=== PATIENT | male | born 1990 ===

== ENCOUNTER 2016-12-02 14:56 | Emergency (ER) | payer MEDICAID, OTHER ==
[2016-12-02 15:01] VITALS: BP 125/78; PULSE 95; RESP 18; TEMP 98.4; O2SAT 99
[2016-12-02] MEDS ORDERED: Lidocaine 2% w Epi 1:100,000 Inj IJ ONE (15:49)
[2016-12-02] MEDS ORDERED: Tmp-Smz 800 mg-160 mg DS Tab PO STA (15:53)
--- NOTE | 2016-12-02 15:54 | C.PDOC ---
History Of Present Illness 26 year old male presents to the ED for evaluation of pain to his buttock area which began around 1 week ago. Patient notes swelling to the area and states he has not taken any medicine for his symptoms. Patient denies fever, chills, recent trauma/injury to the affected area, or previous history of similar symptoms. Time Seen by Provider: 12/02/16 15:05 Chief Complaint (Nursing): Abnormal Skin Integrity History Per: Patient History/Exam Limitations: no limitations Onset/Duration Of Symptoms: Days (1 week ) Current Symptoms Are (Timing): Still Present Location Of Injury: Posterior: Buttock Quality Of Symptoms: Painful, Swollen Additional History Per: Patient Past Medical History Reviewed: Historical Data, Nursing Documentation, Vital Signs Vital Signs: Last Vital Signs Temp 98.4 F 12/02/16 14:58 Pulse 95 H 12/02/16 14:58 Resp 18 12/02/16 14:58 BP 125/78 12/02/16 14:58 Pulse Ox 99 12/02/16 17:42 - Medical History PMH: No Chronic Diseases Surgical History: No Surg Hx Family History: States: Unknown Family Hx - Social History Hx Alcohol Use: No Hx Substance Use: Yes - Immunization History Hx Tetanus Toxoid Vaccination: No Hx Influenza Vaccination: No Hx Pneumococcal Vaccination: No Review Of Systems Constitutional: Negative for: Fever, Chills Musculoskeletal: Positive for: Other (buttock pain with swelling ) Physical Exam - Physical Exam Appears: Non-toxic, No Acute Distress Skin: Warm, Dry, Other (2 cm mild swelling noted to left gluteal cleft. mild erythema, no fluctuance) Head: Atraumatic, Normacephalic Eye(s): bilateral: Normal Inspection, EOMI Nose: Normal Oral Mucosa: Moist Neck: Supple Chest: Symmetrical, No Deformity Cardiovascular: Rhythm Regular Respiratory: Normal Breath Sounds Rectal: Tenderness (no perirectal tenderness, swelling or ertyhema) Back: No CVA Tenderness, No Vertebral Tenderness Extremity: Normal ROM, Capillary Refill (less than 2 seconds ) Neurological/Psych: Oriented x3, Normal Speech, Normal Cognition Gait: Steady ED Course And Treatment O2 Sat by Pulse Oximetry: 99 (on RA) Pulse Ox Interpretation: Normal Progress Note: Patient received Toradol IM and Bactrim PO. US ordered. Pt was seen and evalauted by Dr Hdz who preformed US. US result shows no evidence of collection. Pt instructioned to warm compresses, take antibiotics and return to ED in 3 days for a wound check. Disposition - Disposition Disposition: HOME/ ROUTINE Disposition Time: 15:51 Condition: STABLE Additional Instructions: Apply warm compresses.Return in 3 days for wound check. Prescriptions: Cephalexin [Keflex] 500 mg PO BID 7 Days capsule Ibuprofen [Motrin Tab] 800 mg PO TID PRN #20 tab PRN Reason: Pain, Mild (1-3) Sulfamethoxazole/Trimethoprim [Bactrim DS 800 mg-160 mg] 1 tab PO BID #14 tab traMADol [Ultram] 50 mg PO Q8 #10 tab Instructions: Cellulitis (ED) Forms: [employer]estorm (Burkinan) - Clinical Impression Clinical Impression: Cellulitis - PA / [address] SQL DEVELOPER / Resident Statement MD/DO has reviewed & agrees with the documentation as recorded. - Scribe Statement The provider has reviewed the documentation as recorded by the Scribe (Teresa Majano) All medical record entries made by the Scribe were at my direction and personally dictated by me. I have reviewed the chart and agree that the record accurately reflects my personal performance of the history, physical exam, medical decision making, and the department course for this patient. I have also personally directed, reviewed, and agree with the discharge instructions and disposition.
[2016-12-02] MEDS ORDERED: Tmp-Smz 800 mg-160 mg DS Tab ONE (15:58)
== END 2016-12-02 16:33 | disposition home or self-care (01) ==
LOC: C.ER 14:56
DX: L03.317 Cellulitis of buttock (principal)
CPT/HCPCS: 96372; 99283; J1885